=== PATIENT | female | born 1955 ===

== ENCOUNTER 2018-01-05 09:56 | Emergency (ER) | payer SELFPAY ==
[~2018-01-05] VITALS: Ht 162.6 cm; Wt 114.5 kg
[~2018-01-05 09:56] MED LIST: ASPIRIN 81M81 MG/TA2 PO; COZAAR 50MG50 MG/TAB PO; FLAGYL500 MG PO; HYDROXYURE500 MG/CAP PO; LEVAQUIN 750MG750 M1 PO; MAXZIDE 50 MG-71 TAB PO; NORCO 325 MG-51 TAB PO; PHENERGAN 25 TA25 MG PO; TYLENOL 325MG325 MG PO; ZANTAC 150 EFF150 M1 PO; ZOFRAN ODT4 MG PO
[2018-01-05 10:00] VITALS: TEMP 99.2
[2018-01-05] MEDS ORDERED: HYDRODIURIL50 MG PO (10:11)
[2018-01-05] MEDS ORDERED: COZAAR 50MG50 MG/TAB PO (10:12)
[2018-01-05] MEDS ORDERED: HYDROXYURE500 MG/CAP PO (10:12)
[2018-01-05 11:57] VITALS: BP 135/84; PULSE 58
== END 2018-01-05 11:58 | disposition home or self-care (01) ==
LOC: COL.ER 09:56
DX: S96.911A Strain of unspecified muscle and tendon at ankle and foot level, right foot, initial encounter (principal); S86.912A Strain of unspecified muscle(s) and tendon(s) at lower leg level, left leg, initial encounter; S69.91XA Unspecified injury of right wrist, hand and finger(s), initial encounter; I10 Essential (primary) hypertension; W01.0XXA Fall on same level from slipping, tripping and stumbling without subsequent striking against object, initial encounter; Y92.89 Other specified places as the place of occurrence of the external cause
CPT/HCPCS: Q4021

== ENCOUNTER → 2018-01-24 | Outpatient (CLI) | payer SELFPAY ==
[~2018-01-24] MED LIST changes: +HYDRODIURIL50 MG PO
== END ==
LOC: COL.RAD 13:30
DX: M19.031 Primary osteoarthritis, right wrist (principal); W01.0XXA Fall on same level from slipping, tripping and stumbling without subsequent striking against object, initial encounter

== ENCOUNTER 2020-08-23 14:15 | Outpatient (RCR) | payer OTHER | END 2020-10-15 | disposition still patient (30) | LOC: WSOT | DX: S54.01XD Injury of ulnar nerve at forearm level, right arm, subsequent encounter (principal); Z98.890 Other specified postprocedural states ==

== ENCOUNTER 2021-10-30 01:27 | Emergency (ER) | payer SELFPAY ==
[~2021-10-30] VITALS: Ht 175.3 cm; Wt 86.4 kg
[2021-10-30 01:28] VITALS: TEMP 97.9
[2021-10-30 02:00] LABS: BASO # 0.1 K/mm3 (0.0-0.2); BASO % 0.7 % (0.0-2.0); EOS # 0.2 K/mm3 (0.0-0.7); EOS % 1.8 % (0.0-4.0); GRAN # 6.3 K/mm3 (1.4-6.5); GRAN % 64.8 % (42.2-75.2); HEMATOCRIT 37.9 % (37.0-47.0); HEMOGLOBIN 12.8 g/dl (12.5-16.0); LYMPH # 2.4 K/mm3 (1.2-3.4); LYMPH % 24.3 % (20.0-51.0); MEAN CELL VOLUME 93 fl (80.0-100.0); MEAN CORPUSCULAR HEMOGLOBIN 31 pg (27-31); MEAN CORPUSCULAR HGB CONC 34 g/dl (33.0-37.0); MEAN PLATELET VOLUME 9.2 fl (7.4-10.4); MONO # 0.8 K/mm3 (0.1-0.6); MONO % 7.7 % (1.7-9.3); PLATELET COUNT 915 K/mm3 (130-400); RED BLOOD COUNT 4.07 M/mm3 (4.10-5.30)
[2021-10-30 02:15] LABS: ALBUMIN 3.6 gm/dL (3.4-4.8); BILIRUBIN,TOTAL 0.3 mg/dL (0.2-1.2); CALCIUM 8.4 mg/dL (8.4-10.2); CREATININE, serum 0.96 mg/dL (0.57-1.11); POTASSIUM 3.5 mmol/L (3.5-4.5); TOTAL PROTEIN 6.1 gm/dL (6.2-8.1)
[2021-10-30 02:42] VITALS: BP 155/104; PULSE 60
== END 2021-10-30 02:43 | disposition home or self-care (01) ==
LOC: COL.ER 01:27
PROVIDERS: Personal Emergency Response Attendant
DX: M79.604 Pain in right leg (principal); D47.3 Essential (hemorrhagic) thrombocythemia

== ENCOUNTER 2022-07-01 14:30 | Outpatient (RCR) | payer MEDICARE | END 2022-07-21 | disposition home or self-care (01) | LOC: PT.GENESIS | DX: M54.16 Radiculopathy, lumbar region (principal); M79.605 Pain in left leg ==